=== PATIENT | female | born 1980 | race Caucasian/White ===

== ENCOUNTER 2019-05-02 12:00 | Inpatient (IN) | payer BC ==
[~2019-05-02] VITALS: Ht 167.6 cm; Wt 90.7 kg
[2019-05-02] MEDS ORDERED: LR 1,000 ML IV ONE (12:14)
[2019-05-02] MEDS ORDERED: LR 1,000 ML IV SCH (12:14)
[2019-05-02] MEDS ORDERED: OXYTOCIN/0.9 % SODIUM CHLORIDE 1,000 ML IV SCH (12:14)
[2019-05-02] MEDS ORDERED: TERBUTALINE SULFATE 1 MG/ML VIAL SUBCUT ONE (12:15)
[2019-05-02] MEDS ORDERED: CLINDAMYCIN 900 mg/50mL D5W 50 ML IV ONE (12:47)
[2019-05-02] MEDS ORDERED: CLINDAMYCIN 900 mg/50mL D5W 50 ML IV SCH (13:00)
[2019-05-02] MEDS ORDERED: OXYTOCIN/0.9 % SODIUM CHLORIDE 1,000 ML IV ONE (13:32)
[2019-05-02] MEDS ORDERED: OXYCODONE/ACETAMINOPHEN 5-325 TABLET PO PRN ×2 (13:45)
[2019-05-02] MEDS ORDERED: WITCH HAZEL LEAF 1 MED.PAD MED.PAD TP PRN (13:45)
[2019-05-02] MEDS ORDERED: LANOLIN 7 GM OINT. TP PRN (13:45)
[2019-05-02] MEDS ORDERED: HYDROCORTISONE 0.5%, 28.35 GM TOPICAL CREAM TP PRN (13:45)
[2019-05-02] MEDS ORDERED: METHYLERGONOVINE MALEATE 0.2 MG TABLET PO PRN (13:45)
[2019-05-02] MEDS ORDERED: DERMOPLAST SPRAY TP PRN (13:45)
[2019-05-02 14:39] LABS: BASOPHILS % (AUTO) 0.4 % (0.0-2.0); EOSINOPHILS % (AUTO) 0.3 % (0.0-4.0); HEMATOCRIT 39.7 % (36-48); HEMOGLOBIN 13.5 g/dL (12.0-16.0); LYMPHOCYTES # (AUTO) 0.8 K/uL (1.0-5.5); MEAN CORPUSCULAR HEMOGLOBIN 31 pg (27-31); MEAN CORPUSCULAR HGB CONC 34 % (32-36); MEAN CORPUSCULAR VOLUME 90 fL (79.0-98.0); MONOCYTES # (AUTO) 0.4 K/uL (0.0-1.0); MONOCYTES % (AUTO) 3.9 % (1.7-9.3); NEUTROPHILS # (AUTO) 9.1 K/uL (1.8-7.7); NEUTROPHILS % (AUTO) 87.4 % (40.0-70.0); PLATELET COUNT (AUTO) 250 K/uL (130-430); RED BLOOD CELL COUNT(AUTO) 4.42 MIL/uL (4.2-6.2); RED CELL DISTRIBUTION WIDTH 14.7 % (9.0-15.0); WHITE BLOOD COUNT (AUTO) 10.4 K/uL (4.8-10.8)
[2019-05-02] MEDS: IBUPROFEN 800 MG TABLET PO PRN ×2 (15:41→23:25)
[2019-05-02] MEDS ORDERED: TEMAZEPAM 15 MG CAPSULE PO PRN (21:00)
[2019-05-02] MEDS: DOCUSATE SODIUM 100 MG CAPSULE PO PRN (23:25)
[2019-05-03] MEDS: IBUPROFEN 800 MG TABLET PO PRN ×3 (05:28→18:02)
[2019-05-03 10:21] LABS: BASOPHILS # (AUTO) 0.1 K/uL (0.0-0.2); BASOPHILS % (AUTO) 0.7 % (0.0-2.0); EOSINOPHILS # (AUTO) 0.1 K/uL (0.0-0.4); EOSINOPHILS % (AUTO) 0.7 % (0.0-4.0); HEMATOCRIT 35.4 % (36-48); LYMPHOCYTES # (AUTO) 1.4 K/uL (1.0-5.5); LYMPHOCYTES % (AUTO) 14.7 % (20.5-51.5); MEAN CORPUSCULAR HEMOGLOBIN 31 pg (27-31); MEAN CORPUSCULAR HGB CONC 34 % (32-36); MEAN CORPUSCULAR VOLUME 90 fL (79.0-98.0); MONOCYTES # (AUTO) 0.5 K/uL (0.0-1.0); MONOCYTES % (AUTO) 4.9 % (1.7-9.3); NEUTROPHILS # (AUTO) 7.8 K/uL (1.8-7.7); PLATELET COUNT (AUTO) 249 K/uL (130-430); RED BLOOD CELL COUNT(AUTO) 3.92 MIL/uL (4.2-6.2); RED CELL DISTRIBUTION WIDTH 14.8 % (9.0-15.0); WHITE BLOOD COUNT (AUTO) 9.9 K/uL (4.8-10.8)
[2019-05-03] MEDS: DOCUSATE SODIUM 100 MG CAPSULE PO PRN (11:50)
[2019-05-03] MEDS ORDERED: DOCU-144 PO (15:49)
[2019-05-03] MEDS ORDERED: IBUP-1970 PO (15:49)
[2019-05-03 22:55] VITALS: BP_SYST 132
[2019-05-04] MEDS: IBUPROFEN 800 MG TABLET PO PRN ×2 (05:58→12:29)
[2019-05-04] MEDS: DOCUSATE SODIUM 100 MG CAPSULE PO PRN (12:28)
== END 2019-05-04 14:00 | disposition home or self-care (01) | DRG 807 ==
LOC: SPU 12:00
PROVIDERS: ADMIT Specialist; ATTEND Specialist
PROC: 10E0XZZ Delivery of Products of Conception, External Approach (ICD-10-PCS; principal; 2019-05-02)
DX: O99.824 Streptococcus B carrier state complicating childbirth (principal); Z37.0 Single live birth; Z3A.39 39 weeks gestation of pregnancy
CPT/HCPCS: 36415; 81002-TC; 85025; 86592; 86886; 86900; 86901; J2590; J3490; J7120

== ENCOUNTER 2020-03-28 14:31 | Outpatient (CLI) | payer BC, SELFPAY ==
[~2020-03-28 14:31] MED LIST: DOCU-144 PO; IBUP-1970 PO
== END 2020-03-28 20:50 | disposition home or self-care (01) ==
LOC: SLB 14:31
PROVIDERS: ATTEND Orthopaedic Surgery
DX: Z01.812 Encounter for preprocedural laboratory examination (principal); Z20.828 Contact with and (suspected) exposure to other viral communicable diseases
CPT/HCPCS: 36415